=== PATIENT | female | born 1950 | race Caucasian/White ===

== ENCOUNTER 2018-08-10 09:11 | Outpatient (CLI) | payer MEDICARE | END 2018-08-10 09:12 | disposition home or self-care (01) | LOC: BICMAMMO 09:11 | PROVIDERS: ATTEND Family Medicine | DX: Z12.31 Encounter for screening mammogram for malignant neoplasm of breast (principal); R92.1 Mammographic calcification found on diagnostic imaging of breast | CPT/HCPCS: 77063; 77067 ==

== ENCOUNTER 2019-08-13 10:43 | Outpatient (CLI) | payer MEDICARE ==
--- NOTE | 2019-08-13 13:23 | MMO ---
Bilateral MAMMO Bilat Screen [facility]. CLINICAL HISTORY: Patient is 68 years old and is seen for screening. The patient has no family history of breast cancer. The patient has no personal history of cancer. The patient has a history of bilateral Explantation at age 55 - PT HAD IMPLANTS PUT IN AGE 34 AND TAKEN OUT AT 54. VIEWS: The views performed were: bilateral craniocaudal with tomosynthesis and bilateral mediolateral oblique with tomosynthesis. FILMS COMPARED: The present examination has been compared to prior imaging studies performed at [facility] on 07/28/2012, 05/03/2015, 06/23/2017 and 08/10/2018. This study has been interpreted with the assistance of computer-aided detection. MAMMOGRAM FINDINGS: The breasts are almost entirely fat. Benign calcifications are noted bilaterally. There are no suspicious masses, suspicious calcifications, or new areas of architectural distortion. IMPRESSION: THERE IS NO MAMMOGRAPHIC EVIDENCE OF MALIGNANCY. A ROUTINE FOLLOW-UP MAMMOGRAM IN 1 YEAR IS RECOMMENDED. THE RESULTS OF THIS EXAM WERE SENT TO THE PATIENT. ACR BI-RADS Category 2 - Benign finding MAMMOGRAPHY NOTE: 1. A negative mammogram report should not delay a biopsy if a dominant of clinically suspicious mass is present. 2. Approximately 10% to 15% of breast cancers are not detected by mammography. 3. Adenosis and dense breasts may obscure an underlying neoplasm. Reported by: SARINA BARNES MD Electonically Signed: [id number]
== END 2019-08-13 10:44 | disposition home or self-care (01) ==
LOC: BICMAMMO 10:43
PROVIDERS: ATTEND Family Medicine
DX: Z12.31 Encounter for screening mammogram for malignant neoplasm of breast (principal); Z98.890 Other specified postprocedural states
CPT/HCPCS: 77063; 77067

== ENCOUNTER 2019-11-04 08:30 | Day surgery (SDC) | payer MEDICARE ==
[2019-11-01 16:09] VITALS: BMI 25.8
[2019-11-04 08:57] LABS: #Basophils 0.1 thou/uL (0.0-0.2); #Eosinphils 0.3 thou/uL (0.0-0.7); #Lymphocytes 2.6 thou/uL (1.20-3.40); #Monocytes 0.8 thou/uL (0.11-0.59); %Basophils 1.1 % (0.0-1.0); %Eosinophils 3.8 % (0.0-10.0); %Lymphocytes 29.3 % (21.0-51.0); %Monocytes 9.3 % (0.0-10.0); %Neutrophils 56.5 % (42.0-75.0); Hemoglobin 16.2 g/dL (12.0-16.0); Mean Corpuscular HGB CONC 33.1 g/dL (32.0-36.0); Mean Corpuscular Hemoglobin 33.6 pg (27.0-31.0); Mean Platelet Volume 7.6 fL (7.4-10.4); Platelet Count 260 thou/uL (130-400); White Blood Cell (WBC) Count 8.8 thou/uL (4.8-10.8)
[2019-11-04 09:20] LABS: INR-International Normal Ratio 0.9
--- NOTE | 2019-11-04 11:52 | RAD ---
RADIOGRAPH CHEST 2 VIEW: DATE: 11/04/2019 TIME: 11:30 AM HISTORY: 69-year-old female immediately status post right lung biopsy. COMPARISON: none FINDINGS: There is a tiny right apical 5% pneumothorax. No mediastinal shift approximately 2.5 cm pulmonary mas s at right lateral lung base. No pulmonary edema. Smaller right upper lobe pulmonary nodule. Lateral costophrenic angles are sharp. IMPRESSION: Tiny right apical pneumothorax. Will continue to follow.
--- NOTE | 2019-11-04 12:04 | CT ---
CT-guided lung biopsy: DATE: 11/04/2019 HISTORY: 69-year-old female with right lung mass. Former smoker. TECHNIQUE: Signed informed consent obtained. Patient placed in left lateral decubitus position on CT table. Over lying skin lateral to right lower lateral chest wall prepped and draped in usual sterile fashion. 25-gauge needle used to apply buffered lidocaine superficially and deeply. 19-gauge introducer needle incrementally advanced through skin and intercostal muscles and through the pleural space, with distal tip placed at the lateral edge of the anterobasilar segment right lower lobe pulmonary mass. T he usual 20-gauge lung biopsy needle was not available. [facility] is on 3 months back order for this supply. Therefore, a 20-gauge Temno biopsy needle was used instead. It was placed through th e introducer needle, and the biopsy gun was fired. A very thin layer of mucous-like material on the needle was not enough to smeared on slides. None of it entered the formalin solution. There are addit ional throws of the Temno biopsy needle were performed, both of them yielding no material at all. Introducer needle was removed. Patient was placed supine, and a postbiopsy full CT scan of the chest was performed. FINDINGS: With the patient in left lateral decubitus position, step CT images demonstrate the tip of the introd ucer needle at the lateral edge of the noncalcified right lower lobe laterally positioned basilar pulmonary mass which measures approximately 2.7 x 2.4 cm. The postcontrast full scan of the chest dem onstrates an approximately 5% right-sided pneumothorax. There are 2 irregularly-shaped calcified pulmonary nodules in the right upper lobe. Paraseptal emphysematous changes in the bilateral upper lo bes and superior segments of bilateral lower lobes. No pleural effusion, cardiomegaly, mediastinal lymphadenopathy, or thoracic aortic aneurysm. No adrenal nodule. IMPRESSION: 1. Unsuccessful right lung biopsy after 3 passes of the needle. Failure to obtain tissue is due to un availability of proper equipment: Lack of standard lung biopsy needle. 2. Small 5% right pneumothorax. 3. Paraseptal emphysema.
--- NOTE | 2019-11-04 13:49 | RAD ---
RADIOGRAPH CHEST 2 VIEW: DATE: 11/04/2019 TIME: 1:01 PM HISTORY: Follow-up postbiopsy right pneumothorax. COMPARISON: 11/04/2019 11:30 FINDINGS: The tiny right apical pneumothorax has become smaller, and is currently less than 5%. No other interv al change. IMPRESSION: Interval decrease in size of tiny right apical pneumothorax. Patient was discharged home without inci dent.
[2019-11-04 15:20] VITALS: BP 159/99; TEMP 97.9
== END 2019-11-04 14:00 | disposition home or self-care (01) ==
LOC: CT 08:30
PROVIDERS: ATTEND Internal Medicine
PROC: 0BBF3ZX Excision of Right Lower Lung Lobe, Percutaneous Approach, Diagnostic (ICD-10-PCS; principal; 2019-11-04)
DX: R91.1 Solitary pulmonary nodule (principal); J93.9 Pneumothorax, unspecified; J43.8 Other emphysema; I10 Essential (primary) hypertension; F32.9 Major depressive disorder, single episode, unspecified; I48.0 Paroxysmal atrial fibrillation; E78.5 Hyperlipidemia, unspecified; E03.9 Hypothyroidism, unspecified; Z87.891 Personal history of nicotine dependence; Z79.01 Long term (current) use of anticoagulants; Z79.899 Other long term (current) drug therapy
CPT/HCPCS: 32405; 71045; 77012; 85025; 85610; 85730

== ENCOUNTER 2019-11-30 12:13 | Outpatient (CLI) | payer MEDICARE ==
--- NOTE | 2019-11-30 15:44 | PET ---
EXAM: PET/CT HISTORY: Solitary pulmonary nodule TECHNIQUE: PET scanning with CT attenuation correction was performed from the base of the brain to the proximal thighs following the intravenous administration of 13.4 millicuries [id number]. COMPARISON: CT of the thorax from prior radiology associates dated May 11, 2007 FINDINGS: Biodistribution:The biodistribution for the exam appears acceptable. Head and neck: There is appropriate background activity within the brain. No hypermetabolic lymphaden opathy or masses identified. Thorax: There is a linear region of scarring measuring 3.35 cm within the right lung apex without ass ociated hypermetabolic uptake. There is a 1.9 cm pulmonary nodule within the posterior segment of the right upper lobe without associated hypermetabolic uptake. Both findings were present on the 2007 exam. Additional smaller subcentimeter pulmonary nodules within the right upper lobe are stable. The 2.8 cm nodule within the anterior lateral segment of the right lower lobe, abutting the right martínez or fissure, is only mildly enlarged from the 2007 examination demonstrates mild hypermetabolic uptake of 2.5 and mean activity of 2.49. There is some nodularity seen along the anterior margin of l esion abutting the right major fissure some which may related to subsegmental volume loss or postbiopsy changes. Abdomen and pelvis: There is expected background activity within the GI and systems. No hypermetab olic mass, lymphadenopathy or ascites is present. Osseous structures and skin: There is mild hypermetabolic activity involving contiguous rib fractures of the anterior lateral left chest wall. There are nondisplaced anterolateral left fourth through sixth rib fractures. The peak activity associated with these rib fractures is 5.66. There is a mild s uperior endplate compression deformity at T6 with mild hypermetabolic activity of 4.43. IMPRESSION: Probably normal PET scan 1. The suspicious pulmonary nodule within the right lower lobe only demonstrates mild hypermetabolic uptake up to 2.5. This lesion is only slightly larger than on the comparison CT of the thorax from prior radiology associates in 2006. The lesion at that time measured 2.4 cm in its greatest axial dim ension and now measures 2.8 cm. I favor this nodule reflecting a large inflammatory nodule or granuloma. There is stable pulmonary nodularity within the right upper lobe when compared to 2007 exa mination without associated hypermetabolic activity. The nodularity seen along the right major fissure, abutting the anterior margin of the lesion, is new from the prior CT. Much of this may be re lated to adjacent subsegmental volume loss or possibly scarring from the patient's right lung biopsy. As a conservative measure a follow-up noncontrast CT in 3-6 months may be helpful to document stability. 2. Left anterolateral fourth through sixth rib fractures with associated hypermetabolic activity. The re is a mild superior endplate compression deformity T6 with mild hypermetabolic activity. I favor these reflecting insufficiency type fractures. An MRI examination of the thoracic spine with and with out contrast would be helpful to confirm that the T6 lesion is related to an insufficiency type fracture and not pathologic in origin.
== END 2019-11-30 12:14 | disposition home or self-care (01) ==
LOC: PET 12:13
PROVIDERS: ATTEND Internal Medicine
DX: R91.1 Solitary pulmonary nodule (principal); S22.42XA Multiple fractures of ribs, left side, initial encounter for closed fracture
CPT/HCPCS: 78815; A9552

== ENCOUNTER 2020-07-05 11:01 | Outpatient (CLI) | payer MEDICARE ==
--- NOTE | 2020-07-05 15:16 | CT ---
CT abdomen without and with IV contrast CT pelvis noncontrast HISTORY: Exocrine pancreatic insufficiency. Chronic diarrhea. Tubular adenoma. COMPARISON: Multiple exams back to 10/17/2019. FINDINGS: Pancreatic protocol employed. Pancreas has a normal CT appearance. No abnormal enhancement or mass. No fluid collections. The lobular 2.8 cm low-density mass at the right lateral lung base is stable compared to studies dati ng back to 10/17/2019. Calcified granulomata of the lower chest and abdomen are consistent with healed granulomatous disease. Exophytic cyst is noted at the posterior aspect of the superior pole right kidney. Tiny cortical cyst at the posterior aspect of the left kidney. Prominent calcification throughout the arterial structures. No evidence of urinary tract obstruction or calcification. Urinary bladder has normal appearance. No evidence of bowel obstruction or inflammation. IMPRESSION : No pancreatic abnormalities are demonstrated. Stable CT appearance of the 2.8 cm heterogeneous mass at the right lateral lung base. Atherosclerosis.
== END 2020-07-05 11:02 | disposition home or self-care (01) ==
LOC: SCSCT 11:01
PROVIDERS: ATTEND Internal Medicine Gastroenterology
DX: K86.81 Exocrine pancreatic insufficiency (principal); K52.9 Noninfective gastroenteritis and colitis, unspecified; D36.9 Benign neoplasm, unspecified site; I70.0 Atherosclerosis of aorta; R91.8 Other nonspecific abnormal finding of lung field
CPT/HCPCS: 74170; 82565

== ENCOUNTER 2021-01-24 09:10 | Outpatient (CLI) | payer MEDICARE | END 2021-01-24 09:11 | disposition home or self-care (01) | LOC: BICCT 09:10 | PROVIDERS: ATTEND Internal Medicine Critical Care Medicine | DX: R91.8 Other nonspecific abnormal finding of lung field (principal); J44.9 Chronic obstructive pulmonary disease, unspecified | CPT/HCPCS: 71250 ==

== ENCOUNTER 2021-06-05 10:58 | Outpatient (CLI) | payer MEDICARE | END 2021-06-05 10:59 | disposition home or self-care (01) | LOC: BICMAMMO 10:58 | PROVIDERS: ATTEND Student in an Organized Health Care Education/Training Program | DX: Z12.31 Encounter for screening mammogram for malignant neoplasm of breast (principal) | CPT/HCPCS: 77063; 77067 ==

== ENCOUNTER 2022-06-10 10:26 | Outpatient (CLI) | payer MEDICARE | END 2022-06-10 10:27 | disposition home or self-care (01) | LOC: BICMAMMO 10:26 | PROVIDERS: ATTEND Student in an Organized Health Care Education/Training Program | DX: Z12.31 Encounter for screening mammogram for malignant neoplasm of breast (principal); Z98.82 Breast implant status | CPT/HCPCS: 77063; 77067 ==

== ENCOUNTER 2023-07-03 09:54 | Outpatient (CLI) | payer MEDICARE | END 2023-07-03 09:55 | disposition home or self-care (01) | LOC: BICMAMMO 09:54 | PROVIDERS: ATTEND Student in an Organized Health Care Education/Training Program | DX: Z12.31 Encounter for screening mammogram for malignant neoplasm of breast (principal); Z13.820 Encounter for screening for osteoporosis; E28.39 Other primary ovarian failure; M85.88 Other specified disorders of bone density and structure, other site; Z78.0 Asymptomatic menopausal state; Z98.82 Breast implant status | CPT/HCPCS: 77063; 77067; 77080 ==